=== PATIENT | female | born 1960 | race African-American/Black ===

== ENCOUNTER 2023-07-25 17:12 | Inpatient (IN) | payer OTHER ==
[~2023-07-25] VITALS: Ht 165.1 cm; Wt 121.1 kg
[2023-07-25 17:57] LABS: BASOPHILS # (AUTO) 0.1 K/uL (0.0-0.2); BASOPHILS % (AUTO) 0.6 % (0.0-2.0); EOSINOPHILS # (AUTO) 0.4 K/uL (0.0-0.7); HEMATOCRIT 37 % (33-45); HEMOGLOBIN 11.9 g/dL (11.5-14.8); LYMPHOCYTES # (AUTO) 3.4 K/uL (0.8-4.8); LYMPHOCYTES % (AUTO) 25.9 % (20.0-44.0); MEAN CORPUSCULAR HEMOGLOBIN 33 PG (26.0-33.0); MEAN CORPUSCULAR HGB CONC 32 g/dl (31.0-36.0); MEAN CORPUSCULAR VOLUME 105 fL (82-100); MONOCYTES # (AUTO) 1.1 K/uL (0.1-1.30); MONOCYTES % (AUTO) 8.4 % (2.0-12.0); NEUTROPHILS # (AUTO) 8.1 K/uL (1.8-8.9); NEUTROPHILS % (AUTO) 62.1 % (43.0-81.0); PLATELET COUNT (AUTO) 261 K/uL (150-450); RED BLOOD CELL COUNT(AUTO) 3.56 MIL/uL (4.0-5.2); RED CELL DISTRIBUTION WIDTH 14.3 % (11.5-15.0)
[2023-07-25] MEDS ORDERED: IV NS 0.9% 1,000 ML BAG IV ONE (18:00)
[2023-07-25 18:05] LABS: CALCIUM, SERUM 9.6 mg/dL (8.5-10.1); CREATININE 1.6 mg/dL (0.6-1.3)
[2023-07-25 18:12] LABS: ALBUMIN 3.4 g/dL (3.4-5.0); BILIRUBIN,DIRECT 0.1 mg/dL (0.0-0.2); BILIRUBIN,TOTAL 0.3 mg/dL (0.2-1.0); TOTAL PROTEIN, SERUM 7.3 g/dL (6.4-8.2)
[2023-07-25 18:51] LABS: APPEARANCE,URINE CLEAR (CLEAR); BILIRUBIN,URINE NEGATIVE (NEGATIVE); BLOOD, URINE NEGATIVE Ery/uL (NEGATIVE); COLOR,URINE YELLOW (YELLOW); KETONES,URINE NEGATIVE (NEGATIVE); LEUKOCYTE ESTERASE ,URINE NEGATIVE (NEGATIVE); NITRITE, URINE NEGATIVE (NEGATIVE); PROTEIN,URINE NEGATIVE (NEGATIVE); UGLUCOSE NEGATIVE (NEGATIVE); UROBILINOGEN,URINE 0.2 EU/dL (0.2)
[2023-07-25] MEDS ORDERED: ZOLP5TAB2 PO (18:55)
[2023-07-25] MEDS ORDERED: BACI3.5O23 RIGHTEYE (18:55)
[2023-07-25] MEDS ORDERED: ZOLP10TA2 PO (19:14)
[2023-07-25] MEDS ORDERED: SENN-261 PO (19:14)
[2023-07-25] MEDS ORDERED: FOLI0.8T3 PO (19:14)
[2023-07-25] MEDS ORDERED: MELA3TAB41 PO (19:14)
[2023-07-25] MEDS ORDERED: TRAZ150T75 PO (19:14)
[2023-07-25] MEDS ORDERED: ACET-868 PO (19:14)
[2023-07-25] MEDS ORDERED: LITH300T PO (19:14)
[2023-07-25] MEDS ORDERED: BACL10TA PO (19:14)
[2023-07-25] MEDS ORDERED: CHOL500062 PO (19:14)
[2023-07-25] MEDS ORDERED: HYDR-4303 PO (19:14)
[2023-07-25] MEDS ORDERED: MAGN400O6 PO (19:14)
[2023-07-25] MEDS ORDERED: GABA300C PO (19:14)
[2023-07-25] MEDS ORDERED: CRAN400T3 PO (19:14)
[2023-07-25] MEDS ORDERED: DOCU100C36 PO (19:14)
[2023-07-25] MEDS ORDERED: VALB80CA PO (19:14)
[2023-07-25] MEDS ORDERED: DEXT15DR6 EACHEYE ×2 (19:14)
[2023-07-25] MEDS ORDERED: LEVO50TA8 PO (19:14)
[2023-07-25 19:28] LABS: ANISOCYTOSIS 1+; EOSINOPHILS % (MANUAL) 1 % (0-4); LYMPHOCYTES % (MANUAL) 22 % (16-48); MONOCYTES % (MANUAL) 9 % (0-11.0); NEUTROPHILS % (MANUAL) 68 (42-76); PLATELET ESTIMATE ADEQUATE
[2023-07-25] MEDS ORDERED: BACLOFEN (10 MG) 10 MG TABLET PO PRN (20:00)
[2023-07-25] MEDS ORDERED: ACETAMINOPHEN 325 MG TABLET PO PRN (20:00)
[2023-07-25] MEDS ORDERED: IV NS 0.9% 1,000 ML IV SCH (20:00)
[2023-07-25] MEDS ORDERED: ONDANSETRON HCL/PF 4 MG/2 ML VIAL IVP PRN (20:00)
[2023-07-25] MEDS ORDERED: MAGNESIUM HYDROXIDE 30 ML UDC PO PRN (20:00)
[2023-07-25] MEDS: SENNOSIDES 8.6 MG TABLET PO SCH (22:00)
[2023-07-25] MEDS: ZOLPIDEM TARTRATE 10 MG TABLET PO PRN (22:57)
[2023-07-25] MEDS: MORPHINE SULFATE INJ 2 MG/ML DISP.SYRIN IV PRN (23:53)
[2023-07-26 07:13] LABS: ALBUMIN 2.9 g/dL (3.4-5.0); BILIRUBIN,TOTAL 0.4 mg/dL (0.2-1.0); CALCIUM, SERUM 9.1 mg/dL (8.5-10.1); CREATININE 1.4 mg/dL (0.6-1.3); MAGNESIUM 2.1 mg/dL (1.8-2.4); PHOSPHORUS 3.2 mg/dL (2.5-4.9); TOTAL PROTEIN, SERUM 6.2 g/dL (6.4-8.2)
[2023-07-26 07:27] LABS: BASOPHILS % (AUTO) 0.3 % (0.0-2.0); EOSINOPHILS # (AUTO) 0.4 K/uL (0.0-0.7); EOSINOPHILS % (AUTO) 3.5 % (0.0-6.0); HEMATOCRIT 35 % (33-45); HEMOGLOBIN 11.4 g/dL (11.5-14.8); LYMPHOCYTES # (AUTO) 2.4 K/uL (0.8-4.8); LYMPHOCYTES % (AUTO) 22.9 % (20.0-44.0); MEAN CORPUSCULAR HEMOGLOBIN 34 PG (26.0-33.0); MEAN CORPUSCULAR HGB CONC 33 g/dl (31.0-36.0); MEAN CORPUSCULAR VOLUME 104 fL (82-100); MONOCYTES # (AUTO) 0.9 K/uL (0.1-1.30); MONOCYTES % (AUTO) 8.5 % (2.0-12.0); NEUTROPHILS # (AUTO) 6.7 K/uL (1.8-8.9); NEUTROPHILS % (AUTO) 64.8 % (43.0-81.0); PLATELET COUNT (AUTO) 237 K/uL (150-450); RED BLOOD CELL COUNT(AUTO) 3.35 MIL/uL (4.0-5.2); RED CELL DISTRIBUTION WIDTH 13.7 % (11.5-15.0); WHITE BLOOD COUNT (AUTO) 10.3 K/uL (4.3-11.0)
[2023-07-26 08:00] VITALS: BP 128/56; TEMP 98.2; O2SAT 94
[2023-07-26] MEDS: LEVOTHYROXINE SODIUM 50 MCG TABLET PO SCH (08:11)
[2023-07-26] MEDS ORDERED: IV NS 0.9% 1,000 ML IV PRN (08:17)
[2023-07-26] MEDS: LITHIUM CARBONATE (300 MG CAP) 300 MG CAPSULE PO SCH ×2 (09:00→17:00)
[2023-07-26] MEDS ORDERED: VALBENAZINE TOSYLATE 80 MG PO SCH (09:00)
[2023-07-26] MEDS: DOCUSATE SODIUM 100 MG CAPSULE PO SCH ×2 (09:49→16:31)
[2023-07-26] MEDS: FOLIC ACID 1 MG TABLET PO SCH (09:49)
[2023-07-26] MEDS: GABAPENTIN 300 MG CAPSULE PO SCH ×3 (09:49→16:31)
[2023-07-26] MEDS: NICOTINE PATCH (14MG) 14 MG PATCH.TD24 TD SCH (09:58)
[2023-07-26 10:48] LABS: EOSINOPHILS % (MANUAL) 5 % (0-4); LYMPHOCYTES % (MANUAL) 21 % (16-48); MONOCYTES % (MANUAL) 6 % (0-11.0); NEUTROPHILS % (MANUAL) 68 (42-76); PLATELET ESTIMATE ADEQUATE
[2023-07-26] MEDS: MORPHINE SULFATE INJ 2 MG/ML DISP.SYRIN IV PRN (10:53)
[2023-07-26 16:00] VITALS: BP 123/64; TEMP 98.8; O2SAT 99
[2023-07-26 20:00] VITALS: BP 137/71; TEMP 98.4; O2SAT 99
[2023-07-26] MEDS: TRAZODONE 50 MG TABLET PO SCH (21:39)
[2023-07-26] MEDS: SENNOSIDES 8.6 MG TABLET PO SCH (21:40)
[2023-07-26] MEDS: ZOLPIDEM TARTRATE 10 MG TABLET PO PRN (21:45)
[2023-07-27] MEDS: MORPHINE SULFATE INJ 2 MG/ML DISP.SYRIN IV PRN ×5 (00:58→18:42)
[2023-07-27 07:16] LABS: CALCIUM, SERUM 9.2 mg/dL (8.5-10.1); CREATININE 1.4 mg/dL (0.6-1.3); POTASSIUM 3.9 mmol/L (3.5-5.1)
[2023-07-27] MEDS: LEVOTHYROXINE SODIUM 50 MCG TABLET PO SCH (07:44)
[2023-07-27 08:30] VITALS: BP 131/72; TEMP 98.2; O2SAT 95
[2023-07-27] MEDS: NICOTINE PATCH (14MG) 14 MG PATCH.TD24 TD SCH ×2 (09:00→09:08)
[2023-07-27] MEDS: DOCUSATE SODIUM 100 MG CAPSULE PO SCH ×2 (09:08→16:54)
[2023-07-27] MEDS: FOLIC ACID 1 MG TABLET PO SCH (09:08)
[2023-07-27] MEDS: GABAPENTIN 300 MG CAPSULE PO SCH ×3 (09:08→16:54)
[2023-07-27] MEDS: ENSURE ENLIVE 237 ML LIQUID (VANILLA) PO SCH (09:08)
[2023-07-27] MEDS: DIVALPROEX SODIUM 250 MG TABLET.DR PO SCH (16:54)
[2023-07-27 20:00] VITALS: BP 137/60; TEMP 97.8; O2SAT 97
[2023-07-27] MEDS: TRAZODONE 50 MG TABLET PO SCH (21:19)
[2023-07-27] MEDS: ZOLPIDEM TARTRATE 10 MG TABLET PO PRN (21:24)
[2023-07-27] MEDS: SENNOSIDES 8.6 MG TABLET PO SCH (21:27)
[2023-07-28] MEDS: MORPHINE SULFATE INJ 2 MG/ML DISP.SYRIN IV PRN ×4 (02:59→16:05)
[2023-07-28 07:01] LABS: CREATININE 1.4 mg/dL (0.6-1.3); POTASSIUM 3.9 mmol/L (3.5-5.1)
[2023-07-28] MEDS: LEVOTHYROXINE SODIUM 50 MCG TABLET PO SCH (07:45)
[2023-07-28 08:00] VITALS: BP 118/72; TEMP 98.8; O2SAT 96
[2023-07-28] MEDS: NICOTINE PATCH (14MG) 14 MG PATCH.TD24 TD SCH ×2 (09:00→09:14)
[2023-07-28] MEDS: DOCUSATE SODIUM 100 MG CAPSULE PO SCH ×2 (09:13→16:05)
[2023-07-28] MEDS: DIVALPROEX SODIUM 250 MG TABLET.DR PO SCH ×3 (09:13→16:05)
[2023-07-28] MEDS: GABAPENTIN 300 MG CAPSULE PO SCH ×3 (09:14→16:05)
[2023-07-28] MEDS: FOLIC ACID 1 MG TABLET PO SCH (09:14)
[2023-07-28] MEDS: ENSURE ENLIVE 237 ML LIQUID (VANILLA) PO SCH (10:03)
[2023-07-28 16:00] VITALS: BP 125/65; TEMP 98.2; O2SAT 97
[2023-07-28 20:00] VITALS: BP_SYST 142; BP_SYST 143; BP_DIAS 63; TEMP 98.2; O2SAT 97
[2023-07-28] MEDS: ZOLPIDEM TARTRATE 10 MG TABLET PO PRN (21:52)
[2023-07-28] MEDS: TRAZODONE 50 MG TABLET PO SCH (21:53)
[2023-07-28] MEDS: SENNOSIDES 8.6 MG TABLET PO SCH (21:56)
[2023-07-28] MEDS: HYDROCODONE/APAP 5/325MG TABLET PO PRN (22:02)
[2023-07-29] MEDS: HYDROCODONE/APAP 5/325MG TABLET PO PRN ×3 (03:59→16:33)
[2023-07-29] MEDS: LEVOTHYROXINE SODIUM 50 MCG TABLET PO SCH (07:58)
[2023-07-29 08:00] VITALS: BP 136/87; TEMP 98.2; O2SAT 100
[2023-07-29] MEDS: DIVALPROEX SODIUM 250 MG TABLET.DR PO SCH ×3 (08:50→16:33)
[2023-07-29] MEDS: GABAPENTIN 300 MG CAPSULE PO SCH ×3 (08:51→16:33)
[2023-07-29] MEDS: DOCUSATE SODIUM 100 MG CAPSULE PO SCH ×2 (08:51→16:33)
[2023-07-29] MEDS: FOLIC ACID 1 MG TABLET PO SCH (08:51)
[2023-07-29] MEDS: NICOTINE PATCH (14MG) 14 MG PATCH.TD24 TD SCH (08:51)
[2023-07-29] MEDS: ENSURE ENLIVE 237 ML LIQUID (VANILLA) PO SCH (09:23)
[2023-07-29 16:00] VITALS: BP 145/73; TEMP 98.2; O2SAT 96
== END 2023-07-29 20:20 | DRG 421 ==
LOC: ER 17:16 → MED 21:01
PROVIDERS: ADMIT Internal Medicine; ATTEND Nurse Practitioner Acute Care
DX: R62.7 Adult failure to thrive (principal); N17.0 Acute kidney failure with tubular necrosis; H01.003 Unspecified blepharitis right eye, unspecified eyelid; E86.0 Dehydration; F31.9 Bipolar disorder, unspecified; G47.00 Insomnia, unspecified; Z20.822 Contact with and (suspected) exposure to COVID-19; Z79.890 Hormone replacement therapy; Z79.899 Other long term (current) drug therapy; E66.9 Obesity, unspecified; Z68.41 Body mass index [BMI] 40.0-44.9, adult; E03.9 Hypothyroidism, unspecified; D72.829 Elevated white blood cell count, unspecified; F17.200 Nicotine dependence, unspecified, uncomplicated; M89.8X9 Other specified disorders of bone, unspecified site; N18.9 Chronic kidney disease, unspecified; D64.9 Anemia, unspecified
CPT/HCPCS: 36415; 76770-TC; 80048-TC; 80053-TC; 80076-TC; 83690-TC; 83735-TC; 84100-TC; 85025-TC; 87081-TC; 97112-TC; 97116-TC; 97530-TC; A4223; G0378; J2270; J7030